=== PATIENT | male | born 1950 | race Caucasian/White ===

== ENCOUNTER → 2017-12-16 | Outpatient (CLI) | payer MEDICARE, OTHER ==
[~2017-12-16] VITALS: Ht 179.1 cm; Wt 105.5 kg
[~2017-12-16] MED LIST: ASPI1TAB57 PO; CHLORHEXIDINE GLUCONATE 2 % 1 PACK (2 CLOTHS) TOPICAL PRN; DEXTROSE 5%-LACTATED RING INJ 1,000 ML IV SCH; LACTATED RINGER'S 1000 ML IV PRN; LIDOCAINE HCL 1% PF 5 ML SYRINGE OTHER ONE; LISI-515 PO; MELO15TA20 PO; METOPROLOL TARTRATE 25 MG TAB PO PRN; MULT-65 PO; PANT20TA2 PO; POVIDONE IODINE 5% (ANTISEPSIS KIT) 4 APPLICATIONS EACH NARE PRN; PROPOFOL 200 MG/20 ML AMP IV ONE; SIMV40TA PO; SODIUM CHLORID 0.9% 500 ML IV PRN
--- NOTE | 2017-12-16 13:14 | PD.PROCEDR ---
GI Procedure PROCEDURE PERFORMED EGD with biopsy followed by endoscopic ultrasound INDICATION FOR PROCEDURE Elevated gastrin level, history of neuroendocrine gastric tumor PROCEDURE: The procedure, risks and benefits were discussed with Patient/POA and informed consent was obtained. Anesthesia sedated Patient with Diprivan. Patient was placed in the left lateral decubitus position. EGD: The Pentax videoscope was introduced through the oropharynx and advanced to the second portion of the duodenum under direct visualization. Retroflexion was performed in the stomach. FINDINGS: The esophagus this was normal The stomach there was patchy erythema in the antrum this was biopsied otherwise it was unremarkable The duodenum this was normal EUS: The Pentax videoscope was introduced through the oropharynx and advanced to the second portion of the duodenum . FINDINGS: The pancreatic parenchyma was unremarkable with normal limits from head to tail Pancreatic duct was also unremarkable with normal limits The bile duct was also within normal limits The gallbladder was within normal limits No lymphadenopathy was noted and no lumps or bumps And gastric mucosa appeared to be unremarkable as far as the body in the fundus are concerned ESTIMATED BLOOD LOSS: None SPECIMENS REMOVED: Antral biopsies COMPLICATIONS: None IMPRESSION: Mild gastritis Unremarkable endoscopic ultrasound PLAN: Await biopsies Follow-up in clinic in 3-4 weeks Charles Cespedes MD December 16, 2017 13:14
[2017-12-16 13:50] VITALS: BP 127/68; PULSE 47; RESP 18; TEMP 97.5; O2SAT 99
--- NOTE | 2017-12-16 16:06 | EKG ---
Date Performed: 12/16/2017 Time Performed: 09:52:00 PTAGE: 67 years EKG: SINUS BRADYCARDIA INCOMPLETE RIGHT BUNDLE BRANCH BLOCK BORDERLINE ECG NO PREVIOUS TRACING DOCTOR: Yoni Ulrich Interpretating Date/Time 12/16/2017 16:03:02
== END ==
LOC: HSDC 09:29
PROVIDERS: ATTEND Internal Medicine Gastroenterology
DX: K29.50 Unspecified chronic gastritis without bleeding (principal); E16.4 Increased secretion of gastrin; I45.10 Unspecified right bundle-branch block
CPT/HCPCS: 00731; 43242; 88305; 88312; 93005; J7120; 43259